=== PATIENT | female | born 1955 | race Caucasian/White ===

== ENCOUNTER 2017-07-27 11:49 | Outpatient (CLI) | payer BC | END 2017-07-27 11:50 | disposition home or self-care (01) | LOC: BICMAMMO 11:49 | PROVIDERS: ATTEND Obstetrics & Gynecology | DX: Z12.31 Encounter for screening mammogram for malignant neoplasm of breast (principal) | CPT/HCPCS: 77063; 77067 ==

== ENCOUNTER 2017-10-10 08:42 | Emergency (ER) | payer BC ==
[2017-10-10] MEDS ORDERED: Ibuprofen 200 MG TAB ONE (09:16)
[2017-10-10] MEDS ORDERED: Lidocaine 2% PF 5 ML VIAL ONE ×2 (09:48→09:51)
--- NOTE | 2017-10-10 10:55 | RAD ---
RIGHT WRIST 3 VIEWS: Date: 10/10/17 HISTORY: Tripped and fell. Injury. Pain. COMPARISON: None. FINDINGS: Interarticular fracture distal radius with mild impaction and dorsal angulation and dorsal displaceme nt. There is possible fracture through the ulnar styloid tip. Scaphoid appears unremarkable. IMPRESSION: 1. Interarticular fracture distal radius with mild dorsal angulation and displacement, as well as im paction. 2. Possible injury through the ulnar styloid. POS: [facility]
--- NOTE | 2017-10-10 12:53 | RAD ---
3 VIEWS RIGHT WRIST: Date: 10/10/17 Time: 1045 hours COMPARISON: 10/10/17, 0856 hours. HISTORY: Status post reduction, wrist fracture. FINDINGS: There is casting material overlying the distal right radius. The comminuted distal right radial fract ure demonstrates residual dorsal displacement measuring approximately 6.0 mm. There is extension into the radiocarpal and distal radial ulnar joint with a possible associated ulnar styloid chip fracture . IMPRESSION: Distal right radial fracture as above. POS: [facility]
== END 2017-10-10 12:11 | disposition home or self-care (01) ==
LOC: ERS 08:42
DX: S52.501A Unspecified fracture of the lower end of right radius, initial encounter for closed fracture (principal); W01.0XXA Fall on same level from slipping, tripping and stumbling without subsequent striking against object, initial encounter
CPT/HCPCS: 25605; J2001

== ENCOUNTER 2017-10-19 12:55 | Outpatient (CLI) | payer BC ==
[2017-10-19 14:46] LABS: Hemoglobin 12.9 g/dL (12.0-16.0); Mean Corpuscular HGB CONC 33.7 g/dL (32.0-36.0); Mean Corpuscular Hemoglobin 31.2 pg (27.0-31.0); Mean Corpuscular Volume 92.6 fl (81.0-99.0); Mean Platelet Volume 7.1 fL (7.4-10.4); Platelet Count 293 thou/uL (130-400); RBC Distribution Width 11.3 % (11.5-14.5); Red Blood Cell (RBC) Count 4.14 mill/uL (4.20-5.40); White Blood Cell (WBC) Count 7.8 thou/uL (4.8-10.8)
== END 2017-10-19 12:56 | disposition home or self-care (01) ==
LOC: LABBT 12:55
PROVIDERS: ATTEND Orthopaedic Surgery
DX: Z01.812 Encounter for preprocedural laboratory examination (principal); S52.501A Unspecified fracture of the lower end of right radius, initial encounter for closed fracture
CPT/HCPCS: 85027

== ENCOUNTER 2017-10-20 06:34 | Day surgery (SDC) | payer BC ==
[2017-10-19 13:17] VITALS: BMI 28.1
[2017-10-20] MEDS ORDERED: Clindamycin/D5W 600 mg/50 ml Premix Bag ONE (07:12)
[2017-10-20] MEDS ORDERED: Midazolam HCl 2 mg/2 ml Vial ONE (09:29)
[2017-10-20] MEDS ORDERED: Fentanyl 100 MCG/2 ML VIAL ONE ×3 (09:29→11:36)
[2017-10-20] MEDS ORDERED: Promethazine HCl 25 MG/ML VIAL ONE (09:35)
[2017-10-20] MEDS ORDERED: Bupivacaine HCl 0.5%/Epinephrine 1:200,000/PF 30 ml Vial ONE ×2 (10:16→16:01)
[2017-10-20] MEDS ORDERED: HYDROmorphone 0.5 MG/0.5 ML SYRINGE ONE (11:29)
--- NOTE | 2017-10-20 12:14 | OP ---
DATE OF PROCEDURE: 10/20/2017 PREOPERATIVE DIAGNOSES: Right Colles fracture greater than 20 degrees angulation pre-reduction films, dorsal buckle two-part. PROCEDURE: 1. Open reduction internal fixation right distal radius fracture. 2. Short arm splint. STAFF: Tavo Gonzalez M.D. HOSPITAL PHARMACY TECHNICIAN: Suman Price PA-C. ANESTHESIA: The patient received a LMA with 10 mL of local 0.5% Marcaine with epinephrine. ESTIMATED BLOOD LOSS: 30 mL. TOURNIQUET TIME: 40 minutes tourniquet time IMPLANTS: A Synthes 2.4 x 50 mm VA LCP plate 2 column with four 2.4 distal locking screws and three 2.7 nonlocking screws. ANTIBIOTICS: Clindamycin 600. COMPLICATIONS: None. HISTORY OF PRESENT ILLNESS: Ms. Edmondson is a pleasant 62-year-old female who presents status post fall sustaining a distal radius fracture. I had discussed with the patient based on her preinjury films that she had a little too much dorsal angulation, I felt like she would benefit from a closed reduction, open reduction internal fixation of her right distal radius. Given the patient's activity level and her dominant. She understood the risks of surgery to include pain, scar, bleeding, infection, damage to vital structures, decreased range of motion or strength, failure of the procedure, damage to tendon, need for further surgeries, loss of life or limb. The patient understood the risks and benefits and elected to proceed. PROCEDURE IN [place]: A timeout was performed designating the patient's right upper extremity as the operative site based on sight, consents, markings. After completion of timeout, the patient's right upper extremity was prepped and draped in sterile fashion. Tourniquet was brought up and left up for a total of 40 minutes. I made an incision over the patient's flexor down through skin of the flexor coming down through the fascial plane, pulling it ulnarly coming down onto the pronator quadratus, finding the FPL taking the artery radially. We then moved, we then split down the pronator quadratus, elevated off the fracture site, cleaned out the fracture site, reduced the fracture into position, placed our 4-hole distal plate in place, found our position and placed our drill hole and our toggle position to help move the distal plate into place. We positioned where I liked. We then pinned our K-wire to position. After we pinned our K-wire into position, I liked the position of alignment. We then placed 4 distal screws measuring them to ensure that they were not too long. I looked at radiographs to ensure they were sticking out and a styloid screw to help hold the fracture into position, we liked the overall alignment. We then placed two more 2.7 screws proximally, washed, took final radiographs, closed the pronator quadratus, closed subcu with 2-0 and closed the skin with 3-0 nylon. The patient will be discharged with follow up in 10-12 days. Elevation and ice. The patient will begin finger range of motion. I will follow up with her in about 10-12 days for placement of a buckle wrist splint. YUSUF
--- NOTE | 2017-10-20 12:19 | RAD ---
RIGHT WRIST: Four portable fluoroscopic images are submitted for interpretation. History: 62-year-old female for ORIF right wrist. FINDINGS: Comminuted and distal radial fracture is stabilized with metallic plate and screws in satisfactory po sition and alignment. Improvement in position and alignment from the prior study. IMPRESSION: Status ORIF distal right radius. POS: [facility]
[2017-10-20] MEDS ORDERED: PHENYLEPHRINE-NS 100 MCG/ML 10 ML SYRINGE ONE (16:21)
[2017-10-20] MEDS ORDERED: PROPOFOL 200 MG/20 ML VIAL ONE (16:21)
[2017-10-20] MEDS ORDERED: Dexamethasone 20 MG/5 ML VIAL ONE (16:21)
[2017-10-20] MEDS ORDERED: Lidocaine 1% PF 5 ML VIAL ONE (16:21)
== END 2017-10-20 13:30 | disposition home or self-care (01) ==
LOC: SDC 06:34
PROVIDERS: ATTEND Orthopaedic Surgery
PROC: 0PSH04Z Reposition Right Radius with Internal Fixation Device, Open Approach (ICD-10-PCS; principal; 2017-10-20)
DX: S52.531A Colles' fracture of right radius, initial encounter for closed fracture (principal); M19.90 Unspecified osteoarthritis, unspecified site; M85.80 Other specified disorders of bone density and structure, unspecified site; Z79.899 Other long term (current) drug therapy; Z88.0 Allergy status to penicillin; Z88.2 Allergy status to sulfonamides; W17.89XA Other fall from one level to another, initial encounter
CPT/HCPCS: 76000; 96374; C1713; J0670; J1100; J1170; J2001; J2250; J2550; J2704; J3010; J3490

== ENCOUNTER 2023-12-04 10:46 | Outpatient (CLI) | payer MEDICARE | END 2023-12-04 10:47 | disposition home or self-care (01) | LOC: BICMAMMO 10:46 | PROVIDERS: ATTEND Obstetrics & Gynecology | DX: Z12.31 Encounter for screening mammogram for malignant neoplasm of breast (principal) | CPT/HCPCS: 77063; 77067 ==

== ENCOUNTER 2024-06-06 14:58 | Outpatient (CLI) | payer MEDICARE | END 2024-06-06 14:59 | disposition home or self-care (01) | LOC: BICRAD 14:58 | PROVIDERS: ATTEND Neurological Surgery | DX: M54.50 Low back pain, unspecified (principal); M43.16 Spondylolisthesis, lumbar region; M85.88 Other specified disorders of bone density and structure, other site; Z98.1 Arthrodesis status | CPT/HCPCS: 72100 ==

== ENCOUNTER 2024-07-04 11:41 | Outpatient (CLI) | payer MEDICARE | END 2024-07-04 11:42 | disposition home or self-care (01) | LOC: BICRAD 11:41 | PROVIDERS: ATTEND Family Medicine | DX: M54.50 Low back pain, unspecified (principal); M54.2 Cervicalgia; M47.812 Spondylosis without myelopathy or radiculopathy, cervical region; M43.12 Spondylolisthesis, cervical region | CPT/HCPCS: 72050; 72100 ==

== ENCOUNTER 2024-08-04 10:51 | Outpatient (CLI) | payer MEDICARE | END 2024-08-04 10:52 | disposition home or self-care (01) | LOC: BICRAD 10:51 | PROVIDERS: ATTEND Physician Assistant | DX: S32.000A Wedge compression fracture of unspecified lumbar vertebra, initial encounter for closed fracture (principal); M47.816 Spondylosis without myelopathy or radiculopathy, lumbar region; M47.814 Spondylosis without myelopathy or radiculopathy, thoracic region; Z98.1 Arthrodesis status | CPT/HCPCS: 72070; 72100 ==